=== PATIENT | male | born 1965 ===

== ENCOUNTER 2016-11-19 21:42 | Emergency (ER) | payer OTHER ==
[2016-11-19 21:42] VITALS: BMI 29.0
[2016-11-19 22:28] VITALS: RESP 18; TEMP 98.2
[2016-11-19] MEDS ORDERED: Sodium Chloride 0.9% 1,000 ML IV STA (22:53)
--- NOTE | 2016-11-19 22:53 | ED PDOC ---
Arrival/HPI - History of Present Illness Time/Duration: 24 hours Symptom Onset: Gradual Symptom Course: Worsening Activities at Onset: Light Context: Home, Work <JOSÉ LUIS GUERRERO - Last Filed: 11/20/16 01:34> <Aimee German - Last Filed: 11/20/16 01:47> - General Chief Complaint: Medical Clearance Time Seen by Provider: 11/19/16 22:40 - History of Present Illness Narrative History of Present Illness (Text): 11/19/16 22:47 Mr. Joseph is a 51 year old male with a past medical history significant for sciatica who presents to the [facility] [place] department with a chief complaint of lower extremity swelling, itchiness and an episode of near syncope with associated nausea. Patient reports that yesterday afternoon he noticed that his feet were both itchy and had a few scattered bite kothari. Patient states that when he woke up this morning, both of his feet were swollen and his left leg was numb and tingling. He reports that throughout the day the swelling got worse and he reports one episode of nausea, dry heaving and epigastric abdominal pain that was self limited. Patient denies fever, chills, night sweats , headache, changes in his vision, dysphagia, chest pain, palpitations, shortness of breath, cough, wheezing, diarrhea, constipation, rash, trauma, spending any time outdoors or any other bites elsewhere. 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 (JOSÉ LUIS GUERRERO) Past Medical History - Provider Review Nursing Documentation Reviewed: Yes - Travel History Have you recently traveled outside [place] w/in the past 3 mons?: No - Past History Past History: Non-Contributing - Infectious Disease Hx of Infectious Diseases: None - Psychiatric Hx Substance Use: No - Anesthesia Hx Anesthesia: No <JOSÉ LUIS GUERRERO - Last Filed: 11/20/16 01:34> Family/Social History - Physician Review Nursing Documentation Reviewed: Yes Family/Social History: Unknown Family HX Smoking Status: Never Smoked Hx Alcohol Use: No Hx Substance Use: No <JOSÉ LUIS GUERRERO - Last Filed: 11/20/16 01:34> Allergies/Home Meds <JOSÉ LUIS GUERRERO - Last Filed: 11/20/16 01:34> <Aimee German - Last Filed: 11/20/16 01:47> Allergies/Adverse Reactions: Allergies moxifloxacin HCl [From Avelox] Allergy (Verified 11/19/16 22:28) REDNESS shellfish derived Allergy (Verified 11/19/16 22:28) ANAPHYLAXIS Home Medications: Home Meds Medication Instructions Recorded Confirmed No Known Home Med 11/19/16 11/19/16 Review of Systems - Physician Review All systems were reviewed & negative as marked: Yes - Review of Systems Constitutional: Normal. absent: Fevers, Night Sweats Eyes: Normal. absent: Vision Changes ENT: Normal Respiratory: Normal. absent: SOB, Cough, Wheezing Cardiovascular: Normal. absent: Chest Pain, Palpitations, Calf Pain Gastrointestinal: Abdominal Pain (Epigastric), Nausea. absent: Constipation, Diarrhea, Vomiting Genitourinary Male: Normal. absent: Dysuria Musculoskeletal: Normal. absent: Back Pain, Neck Pain Skin: Pruritis (lower extremities), Other (bite kothari on both feet). absent: Normal, Rash Neurological: Normal. absent: Headache, Focal Weakness Endocrine: Normal Hemo/Lymphatic: Normal Psychiatric: Normal <JOSÉ LUIS GUERRERO - Last Filed: 11/20/16 01:34> Physical Exam Vital Signs Reviewed: Yes Temperature: Afebrile Blood Pressure: Normal Pulse: Regular Respiratory Rate: Normal Appearance: Positive for: Well-Appearing, Non-Toxic, Comfortable Pain Distress: None Mental Status: Positive for: Alert and Oriented X 3 - Systems Exam Head: Present: Atraumatic, Normocephalic Pupils: Present: PERRL Extroacular Muscles: Present: EOMI Conjunctiva: Present: Normal Mouth: Present: Moist Mucous Membranes Neck: Present: Normal Range of Motion, Trachea Midline. No: Meningeal Signs, MIDLINE TENDERNESS, Paraspinal Tenderness, JVD, Lymphadenopathy Respiratory/Chest: Present: Clear to Auscultation, Good Air Exchange. No: Respiratory Distress, Accessory Muscle Use, Wheezes, Decreased Breath Sounds, Rales, Rhonchi, Tachypneic, Tender to Palpation Cardiovascular: Present: Regular Rate and Rhythm, Normal S1, S2, Peripheal Pulses Present. No: Murmurs, Irregular Rhythm, Tachycardic, Bradycardic Abdomen: Present: Tenderness (tenderness to deep palpation), Normal Bowel Sounds. No: Distention, Peritoneal Signs, Rebound, Guarding Back: Present: Normal Inspection. No: CVA Tenderness, Midline Tenderness, Paraspinal Tenderness Upper Extremity: Present: Normal Inspection, Normal ROM, NORMAL PULSES, Neurovascularly Intact, Capillary Refill < 2s. No: Cyanosis, Edema Lower Extremity: Present: Edema (Non-pitting edema to bilateral lower extremity) , NORMAL PULSES, Normal ROM, Swelling, Neurovascularly Intact, Capillary Refill < 2 s, Other (one area of two aligned puncture wounds on R ankle and several small puncture wounds on L ankle). No: Normal Inspection, CALF TENDERNESS, Cyanosis, Carmen's Sign, Tenderness, Erythema, Temperature Abnormalties Neurological: Present: GCS=15, Speech Normal Skin: Present: Warm, Dry, Normal Color. No: Rashes Lymphatic: No: Cervical Adenopathy Psychiatric: Present: Alert, Oriented x 3, Normal Insight, Normal Concentration <JOSÉ LUIS GUERRERO - Last Filed: 11/20/16 01:34> Vital Signs Temp Pulse Resp BP Pulse Ox 11/19/16 23:59 84 18 133/96 H 96 11/19/16 22:25 98.2 F 92 H 18 145/106 H 95 Medical Decision Making - Lab Interpretations I have reviewed the lab results: Yes - RAD Interpretation Warehouse Freight Handler: ED Physician - EKG Interpretation Interpreted by ED Physician: Yes Type: 12 lead EKG <JOSÉ LUIS GUERRERO - Last Filed: 11/20/16 01:34> <Aimee German - Last Filed: 11/20/16 01:47> ED Course and Treatment: 11/19/16 23:05 Impression: 51 year old male with a past medical history significant for sciatica who presents to the [facility] [place] emergency department with a chief complaint of lower extremity swelling, itchiness and an episode of near syncope with associated nausea Plan: -CBC, CMP, PT/INR, aPTT, BNP, Cardiac Iso's, Amylase, Lipase and Urinalysis -EKG -Chest X-Ray (two view) -Bilateral LE duplex -CT abdomen/pelvis with IV contrast -Pepcid, Zofran -NS bolus -Reassess and disposition Prior Visits: All reports and results from previous visits reviewed. 07/2015: Patient seen and evaluated for low back pain. 11/20/16 01:35 Patient reports that he is feeling much better and would prefer to go home at this time, despite his CT abdomen/pelvis not being done yet. Patient with no abdominal pain at this time. Initial lab work and imaging are unremarkable at this time and patient reports being asymptomatic. Patient agreed to follow up with PMD within one week and to come to ED should any symptoms persist, change or worsen. (JOSÉ LUIS GUERRERO) Patient was seen and evaluated with resident. Agree with HPI, clinical findings , plan and treatment. Patient is a 51 year old male who presents to the emergency department for evaluation of bite-appearing lesions to b/l lower extremities. Also reports of swelling and left leg numbness/tingliness. 11/20/16 01:45 Patient with noted history. On the differential are black / brown recluse spider bites; LE doppler is negative for DVT and CXR is unremarkable with unremarkable labs. Patient reports full resolution of abd pain after zofran and pepcid and did not want to get CT a/p done - told the patient since he is asymptomatic at this time, he may be d/c but must follow up with PMD gabby. Also informed to watch skin lesions and to f/u derm if any worsening of lesions. (Aimee German) - Lab Interpretations Lab Results: 11/19/16 23:44 11/19/16 23:44 Lab Results 11/19/16 23:44: Sodium 142, Potassium 4.2, Chloride 105, Carbon Dioxide 27, Anion Gap 14, BUN 20, Creatinine 0.9, Est GFR ( Amer) > 60, Est GFR (Non- Af Amer) > 60, Random Glucose 109, Calcium 10.2, Total Bilirubin 0.9, AST 43, ALT 83 H, Alkaline Phosphatase 75, Lactate Dehydrogenase 547, Total Creatine Kinase 144, Troponin I < 0.01, NT-Pro-B Natriuret Pep < 11.1, Total Protein 7.5 , Albumin 4.4, Globulin 3.1, Albumin/Globulin Ratio 1.4, Amylase 73, Lipase 169 11/19/16 23:44: PT 11.4, INR 1.06, APTT 28.5 11/19/16 23:44: WBC 7.6, RBC 4.39, Hgb 15.0, Hct 43.1, MCV 98.2, MCH 34.2, MCHC 34.8, RDW 12.4, Plt Count 241, MPV 10.1, Gran % 56.3, Lymph % (Auto) 35.0, [place] % (Auto) 7.2 H, Eos % (Auto) 1.2 L, Baso % (Auto) 0.3, Gran # 4.26, Lymph # 2.6 , [place] # 0.5, Eos # 0.1, Baso # 0.02 - RAD Interpretation Radiology Orders: 11/19/16 22:44 DUPLEX LOWER EXTRM VEIN BILAT [US] Stat 11/19/16 22:54 CHEST TWO VIEWS (PA/LAT) [RAD] Stat - EKG Interpretation EKG Interpretation (Text): 11/19/16 23:51 NSR at 81 BPM (JOSÉ LUIS GUERRERO) - Medication Orders Current Medication Orders: Discontinued Medications Famotidine (Pepcid) 20 mg IVP STAT STA Stop: 11/19/16 22:54 Last Admin: 11/19/16 23:27 Dose: 20 mg IVP Administration Document 11/19/16 23:27 OCS (Rec: 11/19/16 23:27 [id number]) Charges for Administration # of IVP Administrations 1 Sodium Chloride (Sodium Chloride 0.9%) 1,000 mls @ 999 mls/hr IV .Q1H1M STA Stop: 11/19/16 23:53 Last Admin: 11/19/16 23:27 Dose: 999 mls/hr eMAR Start Stop Document 11/19/16 23:27 OCS (Rec: 11/19/16 23:28 [id number]) Intravenous Solution Start Date 11/19/16 Start Time 23:28 Ondansetron HCl (Zofran Inj) 4 mg IVP STAT STA Stop: 11/19/16 22:54 Last Admin: 11/19/16 23:28 Dose: 4 mg IVP Administration Document 11/19/16 23:28 OCS (Rec: 11/19/16 23:28 [id number]) Charges for Administration # of IVP Administrations 1 - PA / CAPACITY PLANNING ANALYST / Resident Statement / has reviewed & agrees with the documentation as recorded. / has examined the patient and agrees with the treatment plan. <Aimee German - Last Filed: 11/20/16 01:47> Disposition/Present on Arrival - Present on Arrival Any Indicators Present on Arrival: No History of DVT/PE: No History of Uncontrolled Diabetes: No Urinary Catheter: No History of Decub. Ulcer: No History Surgical Site Infection Following: None - Disposition Have Diagnosis and Disposition been Completed?: Yes Patient Plan: Discharge <JOSÉ LUIS GUERRERO - Last Filed: 11/20/16 01:34> - Present on Arrival Any Indicators Present on Arrival: No - Disposition Have Diagnosis and Disposition been Completed?: Yes Disposition Time: 01:15 Patient Plan: Discharge <Aimee German - Last Filed: 11/20/16 01:47> - Disposition Diagnosis: Skin lesions, Swelling of lower limb, Abdominal pain Disposition: HOME/ ROUTINE Patient Problems: Current Active Problems Problem Status Onset Abdominal pain Acute Skin lesions Acute Swelling of lower limb Acute Condition: GOOD Discharge Instructions (ExitCare): Brown Recluse Spider Bite (ED), Acute Nausea and Vomiting (ED), Acute Abdominal Pain (ED), Black Spider Bite (ED ) Additional Instructions: Advance diet slowly as tolerated. Follow up with your primary care doctor. Follow up with dermatology if any worsening of the skin lesions. Return to the emergency department if any new concerning symptoms. Referrals: Madelaine Ayala MD [Primary Care Provider] - Follow up with primary Riley Davis MD [Staff Provider] - Follow up with primary Forms: [employer] (Arabic), WORK NOTE
[2016-11-19 23:59] LABS: BASO # 0.02 K/mm3 (0.0-2.0); BASO % 0.3 % (0.0-3.0); EOS # 0.1 (0.0-0.7); EOS % 1.2 % (1.5-5.0); GRAN # 4.26 (1.4-6.5); GRAN % 56.3 % (50.0-68.0); HEMATOCRIT 43.1 % (42.0-52.0); LYMPH # 2.6 (1.2-3.4); MEAN CELL VOLUME 98.2 fl (80.0-105.0); MEAN CORPUSCULAR HEMOGLOBIN 34.2 pg (25.0-35.0); MEAN CORPUSCULAR HGB CONC 34.8 g/dl (31.0-37.0); MEAN PLATELET VOLUME 10.1 fl (7.0-11.0); MONO # 0.5 (0.1-0.6); MONO % 7.2 % (1.0-6.0); RED CELL DISTRIBUTION WIDTH 12.4 % (11.5-14.5); WHITE BLOOD COUNT 7.6 10^3/ul (4.5-11.0)
[2016-11-20] VITALS: BP 133/96; PULSE 84; O2SAT 96
[2016-11-20 00:06] LABS: INR 1.06 (0.93-1.08); PARTIAL THROMBOPLASTIN TIME 28.5 Seconds (23.7-30.8)
[2016-11-20 00:29] LABS: ALB/GLOB RATIO 1.4 (1.1-1.8); ALKALINE PHOSPHATASE 75 U/L (38-126); ALT/SGPT 83 U/L (7-56); AMYLASE 73 U/L (35-125); AST/SGOT 43 U/L (17-59); BILIRUBIN,TOTAL 0.9 mg/dL (0.2-1.3); BLOOD UREA NITROGEN 20 mg/dL (7-21); CALCIUM 10.2 mg/dL (8.4-10.5); CARBON DIOXIDE 27 mmol/L (21-33); CHLORIDE 105 mmol/L (98-107); GFR AFRICAN-AMERICAN > 60; GLUCOSE,RANDOM 109 mg/dL (70-110); LIPASE 169 U/L (23-300); POTASSIUM 4.2 mmol/L (3.6-5.0); SODIUM 142 mmol/L (132-148); TOTAL PROTEIN 7.5 g/dL (5.8-8.3)
[2016-11-20 00:48] LABS: TROPONIN I < 0.01 ng/mL
[2016-11-20] MEDS ORDERED: Iohexol 350 MG/100 ML VIAL ONE (01:29)
--- NOTE | 2016-11-20 08:18 | RAD ---
HISTORY: abd pain, n/v, LE swelling COMPARISON: No prior. TECHNIQUE: Chest PA and lateral FINDINGS: LUNGS: No active pulmonary disease. PLEURA: No significant pleural effusion identified. No pneumothorax apparent. CARDIOVASCULAR: Normal. OSSEOUS STRUCTURES: No significant abnormalities. VISUALIZED UPPER ABDOMEN: Normal. OTHER FINDINGS: None. IMPRESSION: No active disease.
--- NOTE | 2016-11-20 11:41 | CARD ---
APPROVED REPORT EKG Measurement Heart [id number] <Conclusion> Normal sinus rhythm Normal ECG
--- NOTE | 2016-11-20 19:56 | US ---
HISTORY: Leg pain and swelling. Evaluate for DVT PHYSICIAN(S): Javier Blake MD. TECHNIQUE: Duplex sonography and color-flow Doppler with graded compression were used to evaluate the deep venous systems of both lower extremities. FINDINGS: The visualized deep venous systems of both lower extremities are sonographically normal and compressible. Normal wave forms and augmentation are seen. There is no sonographic evidence for deep venous thrombosis in the visualized segments of both lower extremities. IMPRESSION: No sonographic evidence for deep venous thrombosis in the visualized segments of both lower extremities.
== END 2016-11-20 01:53 | disposition home or self-care (01) ==
LOC: ED 21:42
DX: L98.9 Disorder of the skin and subcutaneous tissue, unspecified (principal); M79.89 Other specified soft tissue disorders; R10.9 Unspecified abdominal pain
CPT/HCPCS: 71020; 80053; 82150; 82550; 83615; 83690; 83880; 84484; 85025; 85610; 85730; 93005; 93970; 96374; 96375; 99282; J2405; J7040